=== PATIENT | female | born 1970 | race African-American/Black ===

== ENCOUNTER 2025-06-20 11:58 | Inpatient (IN) | payer OTHER ==
[2025-06-20 12:48] VITALS: BMI 23.0
[2025-06-20] MEDS ORDERED: POLYETHYLENE GLYCOL (HEALTHYLAX) 3350 17 GM PACKET PO PRN (12:48)
[2025-06-20] MEDS ORDERED: DICYCLOMINE HCL 10 MG CAPSULE PO PRN (12:48)
[2025-06-20] MEDS ORDERED: guaiFENesin 600 MG TABLET.ER (FP) PO PRN (12:48)
[2025-06-20] MEDS ORDERED: IBUPROFEN 600 MG TABLET (FP) PO PRN (12:48)
[2025-06-20] MEDS ORDERED: BENZOCAINE/MENTHOL (CHLORASEPTIC ) LOZENGE MM PRN (12:48)
[2025-06-20] MEDS ORDERED: NALOXONE (NARCAN) HCL 4 MG/0.1 ML SPRAY NS PRN (12:48)
[2025-06-20] MEDS ORDERED: MAGNESIUM HYDROX 2400MG/30ML ORAL SUSPENSION 30 ML CUP PO PRN (12:48)
[2025-06-20] MEDS ORDERED: ONDANSETRON *ODT* 4 MG TABLET SL PRN (12:48)
[2025-06-20] MEDS ORDERED: BENZONATATE 200 MG CAPSULE PO PRN (12:48)
[2025-06-20] MEDS ORDERED: BISMUTH SUBSALICYLATE 524 MG/30 ML PO PRN (12:48)
[2025-06-20] MEDS ORDERED: IBUPROFEN 400 MG TABLET (FP) PO PRN (12:48)
[2025-06-20] MEDS ORDERED: LOPERAMIDE HCL 2 MG CAPSULE PO PRN (12:48)
[2025-06-20] MEDS ORDERED: MAG HYDROX/AL HYDROX/SIMETH 30 ML UNIT-DOSE CUP PO PRN (12:48)
[2025-06-20] MEDS ORDERED: ACETAMINOPHEN 325 MG TABLET (FP) PO PRN (12:48)
[2025-06-20] MEDS ORDERED: PRENATAL VITAMINS W/ FOLIC ACID TABLET (FP) PO ONE (13:45)
[2025-06-20] MEDS: PRENATAL VITAMINS W/ FOLIC ACID TABLET (FP) PO SCH (13:48)
[2025-06-20] MEDS: ACAMPROSATE CALCIUM 333 MG TABLET.DR PO SCH (14:53)
[2025-06-20] MEDS ORDERED: MELATONIN 5 MG TABLETS PO SCH (22:00)
[2025-06-20] MEDS: SUVOREXANT 5 MG TABLET PO PRN (22:09)
[2025-06-20] MEDS: THIAMINE 100 MG TABLET PO SCH (22:10)
[2025-06-21] MEDS: hydrOXYzine PAMOATE 25 MG CAPSULE (FP) PO PRN (07:46)
[2025-06-21] MEDS: METHOCARBAMOL 500 MG TABLET PO PRN (07:46)
[2025-06-21] MEDS: NICOTINE 14 MG/24 HOURS TOPICAL PATCH TD SCH (09:37)
[2025-06-21 12:37] LABS: MCHC 31.8 g/dl (32.2-35.5); MEAN CELL VOLUME 96.5 fl (79.4-94.8); MEAN PLT VOLUME 12.2 fl (9.4-12.3); RDW 12.2 % (12.3-16.6)
[2025-06-21 12:48] LABS: GLUCOSE,RANDOM 72.0 mg/dL (74-106); TOT PROT 6.7 g/dl (6.4-8.2)
[2025-06-21 12:49] LABS: CO2 26.0 mmol/L (21-32)
[2025-06-21 12:50] LABS: ALK PHOS 71.0 U/L (40-150)
[2025-06-21 12:53] LABS: CREATININE 0.92 mg/dL (0.55-1.3); SGOT/AST 29.0 U/L (5-34); SGPT/ALT 19.0 U/L (0-55)
[2025-06-21] MEDS: amLODIPine BESYLATE 10 MG TABLET (FP) PO SCH (16:45)
[2025-06-22] MEDS: POTASSIUM CHLORIDE ORAL LIQUID 20 MEQ/15 ML PO ONE (15:26)
[2025-06-23 06:15] VITALS: BP 135/100; RESP 16; TEMP 98.7
[2025-06-23 07:39] VITALS: PULSE 101
== END 2025-06-23 12:42 | disposition home or self-care (01) | DRG 773 ==
LOC: YASAS 11:58 → Y3N 13:50
PROVIDERS: ADMIT Allergy & Immunology; ATTEND Allergy & Immunology
PROC: HZ2ZZZZ Detoxification Services for Substance Abuse Treatment (ICD-10-PCS; principal; 2025-06-20)
DX: F10.20 Alcohol dependence, uncomplicated (principal); F11.20 Opioid dependence, uncomplicated; F17.210 Nicotine dependence, cigarettes, uncomplicated; F33.1 Major depressive disorder, recurrent, moderate; F41.9 Anxiety disorder, unspecified; I10 Essential (primary) hypertension
CPT/HCPCS: 36415; 80053; 80305; 80307; 84132; 85027; 86780; 93005; 93010